=== PATIENT | female | born 1950 | race American Indian/Alaskan Native ===

== ENCOUNTER 2018-05-24 09:42 | Outpatient (CLI) | payer MEDICARE ==
--- NOTE | 2018-05-24 14:30 | Mammography Report ---
BILATERAL DIGITAL SCREENING MAMMOGRAM with CAD: 05/24/18 09:42:00 CLINICAL: Routine screening. COMPARISON: 01/15/16 FINDINGS: Breast wasn't fatty with scattered bilateral fibroglandular densities.No mass, architectural distortion or suspicious calcifications. IMPRESSION: No mammographic evidence of malignancy. BI-RADS CATEGORY: 1 -- Negative RECOMMENDATION: Routine mammographic screening in one year. COMMENT: Patient follow-up letters are generated by our [employer] application.
== END 2018-05-24 09:43 | disposition home or self-care (01) ==
LOC: SPVWC 09:42
PROVIDERS: ATTEND Internal Medicine
DX: Z12.31 Encounter for screening mammogram for malignant neoplasm of breast (principal)
CPT/HCPCS: 77067